=== PATIENT | male | born 1995 ===

== ENCOUNTER 2016-07-20 13:40 | Emergency (ER) | payer SELFPAY ==
--- NOTE | 2016-07-22 13:11 | ER ---
ADMIT: 07/20/2016 RM/LOC: ER [facility] MR#: [id number] [facility] [id number] APARNA BERUMENDayana Olmos [address] [place] [address] Emergency Room Report SEX: M AGE: 21 : 1995 DATE: 07/20/2016 A 21-year-old slipped on the ice yesterday, now complaining of left wrist pain on the ulna styloid area. See T-sheet for history and physical. No obvious contusions or abrasions. X-ray of the wrist was negative. Patient diagnosed with wrist sprain. Placed an Volodymyr wrap. Told to ice and elevate and use his Ultram, which he has a script for, for pain control. Follow up this coming week if pain persists beyond 3-4 days. Octavio Conway MD/ amarilis JOB #: [id number] CC: Octavio Conway MD, Attending Physician UNKNOWN, Family Physician
== END 2016-07-20 15:30 | disposition home or self-care (01) ==
LOC: ER 13:40
DX: S63.502A Unspecified sprain of left wrist, initial encounter (principal); W00.0XXA Fall on same level due to ice and snow, initial encounter; Y92.410 Unspecified street and highway as the place of occurrence of the external cause